=== PATIENT | male | born 1990 | race African-American/Black ===

== ENCOUNTER 2020-01-06 12:17 | Emergency (ER) | payer SELFPAY ==
[~2020-01-06] VITALS: Ht 182.9 cm; Wt 108.9 kg
[2020-01-06] MEDS ORDERED: LORazepam Inj 2mg/ml 1ml IV ONE (12:45)
--- NOTE | 2020-01-06 12:50 | Emergency Room Report ---
History of Present Illness General Chief Complaint: Palpitations Source: Patient Present Illness HPI Disclaimer: Please note that this report is being documented using DRAGON technology. This can lead to erroneous entry secondary to incorrect interpretation by the dictating instrument. HPI: 29-year-old male presents for evaluation of palpitations and chest pain. Patient states over the past month he has had intermittent episodes of his heart racing as well as spasm of the mid back that radiates to the anterior chest. He states it goes away after he "cracks his back." Prior to arrival he had an episode of palpitations where he felt like his heart rate was beating too fast. Denied lightheadedness, syncope, chest pressure, shortness of breath, vomiting or diaphoresis. States has been ongoing is seen at several emergency departments in the past. He states he was told he has anxiety but does not take any medication for it. He states he is also having a difficult swallowing feels like there is a lump in his throat. No prior history of thyroid issue. Denies recent fever, chills, vomiting, diarrhea or other changes in his health. He recently moved to [place] does not have a PMD in the area yet. Denies alcohol drug or tobacco use PMH: Denied PSH: Denied Allergies: Denied Social Hx: Denies alcohol, tobacco or drug use Allergies: Coded Allergies: No Known Allergies (Unverified , 01/06/20) COVID-19 Screening Contact w/high risk pt: No Experienced COVID-19 symptoms?: No COVID-19 Testing performed [employer]: No - nov 2019 COVID-19 Screening: Negative COVID-19 COVID-19 Testing Source: [facility] Nursing Documentation-PMH Past Medical History: No Stated History Review of Systems All Other Systems: negative except mentioned in HPI Physical Exam Vital Signs Date Time Temp Pulse Resp B/P (MAP) Pulse Ox O2 Delivery O2 Flow Rate FiO2 01/06/20 12:21 98.2 109 19 128/72 (90) 97 Room Air General: Awake and alert, no acute distress HEENT: NC/AT. EOMI. no thyroid mass or nodules palpable. Cardiovascular: Borderline tachycardia. S1 and S2 normal. No murmur appreciated Resp: Normal work of breathing. No cough, wheezing or crackles appreciated Abdomen: Abdomen is soft, nondistended. Nontender Skin: Intact. No abrasions, laceration or rash over the exposed skin MSK: Normal tone and bulk. Moving all extremities. No obvious deformity. Neuro: Awake and alert. Mentating appropriately. Back: Moderate paraspinal tenderness in the midthoracic region just below the scapula. No midline spinal tenderness. Medical Decision Making Diagnostic Impression: Primary Impression: Back muscle spasm Additional Impression: Palpitations ER Course 29-year-old male presents for evaluation of palpitations. Symptoms been ongoing for several months. Differential includes was not limited to electrolyte abnormality, anxiety, arrhythmia, general apathy, thyroid issue, dehydration, substance abuse among others. EKG shows mild tachycardia but no ischemia. Chest x-ray does not show infiltrate, pneumothorax or other significant findings. Cardiac silhouette is within normal limits. Labs returned within normal limits including TSH and troponin. Patient's presentation may be anxiety, spasm secondary to back strain though based on his work-up today I do not believe there is a life-threatening process occurring at this time. He may benefit from outpatient Holter monitoring and further testing. I will refer him to clinics in the area. Also prescribe Robaxin, lidocaine patches and Motrin to treat his back spasm. This may be a trigger of his palpitations and discomfort. I advised him to return to the emergency department new or worsening symptoms. Patient felt reassured and he acknowledged understanding and agreement with this treatment plan. Laboratory Tests Test 01/06/20 12:35 01/06/20 13:30 White Blood Count 9.9 K/UL (4.8-10.8) Red Blood Count 5.56 M/UL (4.70-6.10) Hemoglobin 16.2 G/DL (14.2-18.0) Hematocrit 49.7 % (42.0-52.0) Mean Corpuscular Volume 89 FL (80-99) Mean Corpuscular Hemoglobin 29.1 PG (27.0-31.0) Mean Corpuscular Hemoglobin Concent 32.5 G/DL (32.0-36.0) Red Cell Distribution Width 13.1 % (11.6-14.8) Platelet Count 298 K/UL (150-450) Mean Platelet Volume 7.6 FL (6.5-10.1) Neutrophils (%) (Auto) 59.9 % (45.0-75.0) Lymphocytes (%) (Auto) 28.9 % (20.0-45.0) Monocytes (%) (Auto) 7.5 % (1.0-10.0) Eosinophils (%) (Auto) 2.3 % (0.0-3.0) Basophils (%) (Auto) 1.4 % (0.0-2.0) Sodium Level 135 MMOL/L (136-145) L Potassium Level 4.5 MMOL/L (3.5-5.1) Chloride Level 101 MMOL/L (98-107) Carbon Dioxide Level 24 MMOL/L (21-32) Anion Gap 10 mmol/L (5-15) Blood Urea Nitrogen 7 mg/dL (7-18) Creatinine 1.3 MG/DL (0.55-1.30) Estimated Glomerular Filtration Rate > 60 mL/min (>60) Glucose Level 111 MG/DL (74-106) H Calcium Level 9.6 MG/DL (8.5-10.1) Total Bilirubin 1.5 MG/DL (0.2-1.0) H Direct Bilirubin 0.1 MG/DL (0.0-0.3) Aspartate Amino Transferase (AST) 42 U/L (15-37) H Alanine Aminotransferase (ALT) 19 U/L (12-78) Alkaline Phosphatase 79 U/L (46-116) Troponin I 0.000 ng/mL (0.000-0.056) Total Protein 7.9 G/DL (6.4-8.2) Albumin 4.4 G/DL (3.4-5.0) Globulin 3.5 g/dL Albumin/Globulin Ratio 1.3 (1.0-2.7) Thyroid Stimulating Hormone (TSH) 2.925 uiU/mL (0.358-3.740) Urine Opiates Screen Negative (NEGATIVE) Urine Barbiturates Screen Pending Phencyclidine (PCP) Screen Negative (NEGATIVE) Urine Amphetamines Screen Negative (NEGATIVE) Urine Benzodiazepines Screen Negative (NEGATIVE) Urine Cocaine Screen Negative (NEGATIVE) Urine Marijuana (THC) Screen Negative (NEGATIVE) EKG Diagnostic Results Troponin ordered: Yes When was troponin ordered?: Jan 06, 2020 EKG Time: 12:37 Rate: normal Rhythm: NSR ST Segments: no acute changes Other Impression Sinus rhythm, normal axis, normal intervals. J-point elevation in the inferior leads. Rhythm Strip Diag. Results Rhythm Strip Time: 12:37 EP Interpretation: yes Rate: 90s Rhythm: NSR Chest X-Ray Diagnostic Results Chest X-Ray Diagnostic Results : Chest X-Ray Ordered: Yes # of Views/Limited/Complete: 1 View Indication: Chest Pain EP Interpretation: Yes Interpretation: no consolidation, no effusion, no pneumothorax, no acute cardiopulmonary disease Impression: No acute disease Electronically Signed by: Electronically signed by Dr. Abdirashid Hernandez Last Vital Signs Date Time Temp Pulse Resp B/P (MAP) Pulse Ox O2 Delivery O2 Flow Rate FiO2 01/06/20 12:21 98.2 109 19 128/72 (90) 97 Room Air Disposition: HOME, SELF-CARE Condition: Stable Scripts Ibuprofen* (MOTRIN*) 600 Mg Tablet 600 MG ORAL Q6H PRN for For Pain, #30 TAB 0 Refills Prov: Abdirashid Hernandez MD 01/06/20 Lidocaine Patch* (Lidoderm Patch*) 1 Each Adh..patch 1 PATCH TOPIC DAILY, #30 PATCH Patch(es) may remain in place for up to 12 hours in any 24-hour period. Prov: Abdirashid Hernandez MD 01/06/20 Methocarbamol* (ROBAXIN-750*) 750 Mg Tablet 750 MG PO QID, #28 TAB 0 Refills Prov: Abdirashid Hernandez MD 01/06/20 Abdirashid Hernandez MD Jan 06, 2020 12:50
[2020-01-06 12:52] VITALS: BP 128/72
[2020-01-06 12:54] LABS: BASOPHILS % (AUTO) 1.4 % (0.0-2.0); EOSINOPHILS % (AUTO) 2.3 % (0.0-3.0); HEMATOCRIT 49.7 % (42.0-52.0); HEMOGLOBIN 16.2 G/DL (14.2-18.0); LYMPHOCYTES % (AUTO) 28.9 % (20.0-45.0); MEAN CORPUSCULAR VOLUME 89 FL (80-99); MONOCYTES % (AUTO) 7.5 % (1.0-10.0); NEUTROPHILS % (AUTO) 59.9 % (45.0-75.0); PLATELET COUNT 298 K/UL (150-450); RED BLOOD COUNT 5.56 M/UL (4.70-6.10); RED CELL DISTRIBUTION WIDTH 13.1 % (11.6-14.8); WHITE BLOOD COUNT 9.9 K/UL (4.8-10.8)
[2020-01-06 12:58] LABS: ANION GAP 10 mmol/L (5-15); BLOOD UREA NITROGEN 7 mg/dL (7-18); CALCIUM 9.6 MG/DL (8.5-10.1); CARBON DIOXIDE 24 MMOL/L (21-32); CHLORIDE 101 MMOL/L (98-107); CREATININE 1.3 MG/DL (0.55-1.30); POTASSIUM 4.5 MMOL/L (3.5-5.1); SODIUM 135 MMOL/L (136-145)
[2020-01-06] MEDS ORDERED: IBUPROFEN600 M1 ORAL (13:03)
[2020-01-06] MEDS ORDERED: ROBAXIN-750750 MG PO (13:03)
[2020-01-06] MEDS ORDERED: LIDODERM700 M1 TOPIC (13:03)
[2020-01-06 13:11] LABS: ALANINE AMINOTRANSFERASE 19 U/L (12-78); ALBUMIN 4.4 G/DL (3.4-5.0); ALBUMIN/GLOBULIN RATIO 1.3 (1.0-2.7); ALKALINE PHOSPHATASE 79 U/L (46-116); ASPARTATE AMINO TRANSFERASE 42 U/L (15-37); BILIRUBIN,TOTAL 1.5 MG/DL (0.2-1.0)
[2020-01-06 13:37] LABS: BILIRUBIN,DIRECT 0.1 MG/DL (0.0-0.3)
[2020-01-06 13:49] VITALS: BP 120/70
--- NOTE | 2020-01-06 14:01 | Diagnostic Imaging Report ---
EXAM: XR Chest, 1 View CLINICAL HISTORY: CP TECHNIQUE: Frontal view of the chest. COMPARISON: No relevant prior studies available. FINDINGS: Lungs: Unremarkable. No consolidation. Pleural space: Unremarkable. No pneumothorax. Heart: Unremarkable. No cardiomegaly. Mediastinum: Unremarkable. Bones/joints: Unremarkable. IMPRESSION: Unremarkable chest x-ray.
== END 2020-01-06 13:49 | disposition home or self-care (01) ==
LOC: EMR 12:26
DX: R00.2 Palpitations (principal); M62.830 Muscle spasm of back; R07.9 Chest pain, unspecified
CPT/HCPCS: 36415; 71045; 80053; 80307; 82248; 84443; 84484; 85025; 93005; 96374; 99284